=== PATIENT | female | born 1995 | race American Indian/Alaskan Native ===

== ENCOUNTER 2024-07-20 03:52 | Emergency (ER) | payer SELFPAY ==
[2024-07-20] MEDS: Ondansetron 4 MG/2 ML SDV IVPUSH ONE (04:05)
[2024-07-20] MEDS: Famotidine 20 MG/2 ML SDV IVPUSH ONE (04:05)
[2024-07-20] MEDS: Morphine 4 MG/ML Syringe IVPUSH ONE ×2 (04:06→04:40)
[2024-07-20] MEDS: Sodium Chloride 0.9% 10 ML Syringe FLUSH PRN (04:06)
[2024-07-20] MEDS: Sodium Chloride 0.9% 2.5 ML Syringe FLUSH PRN (04:06)
[2024-07-20 04:09] LABS: BASOPHILS ABSOLUTE AUTO 0.04 K/uL (0.00-0.20); BASOPHILS PERCENT AUTO 0.4 % (0.0-1.0); EOSINOPHILS ABSOLUTE AUTO 0.15 K/uL (0.00-0.45); EOSINOPHILS PERCENT AUTO 1.4 % (0.0-6.0); HEMATOCRIT 34.2 % (37.0-47.0); IMMATURE GRAN ABSOLUTE AUTO 0.03 K/uL (0.00-0.05); IMMATURE GRAN PERCENT AUTO 0.3 % (0.0-0.4); LYMPHOCYTES ABSOLUTE AUTO 4.65 K/uL (1.00-4.80); LYMPHOCYTES PERCENT AUTO 42.7 % (24.0-44.0); MEAN CORPUSCULAR HEMOGLOBIN 21.5 pg (28.0-32.0); MEAN CORPUSCULAR VOLUME 69.4 fL (83.0-99.0); MEAN PLATELET VOLUME 9.2 fL (9.4-12.3); MONOCYTES ABSOLUTE AUTO 0.76 K/uL (0.00-0.80); NEUTROPHILS ABSOLUTE AUTO 5.26 K/uL (1.80-7.70); NEUTROPHILS PERCENT AUTO 48.2 % (41.0-71.0); PLATELET COUNT,PLT 453 K/uL (150-400); WHITE BLOOD CELL COUNT,WBC 10.89 K/uL (3.9-11.3)
[2024-07-20 04:34] LABS: A/G RATIO 0.9 (0.9-1.6); ALBUMIN 3.4 g/dL (3.4-5.0); BILIRUBIN TOTAL 0.2 mg/dL (0.2-1.0); CALCIUM 9.2 mg/dL (8.5-10.1); CARBON DIOXIDE,CO2 24.5 mmol/L (21.0-32.0); CREATININE 0.9 mg/dL (0.6-1.0); EST CRCL DRUG DOSING (CG) 84.49 mL/min; POTASSIUM,K 3.3 mmol/L (3.5-5.1); PROTEIN TOTAL,TP 7.2 g/dL (6.4-8.2)
[2024-07-20 04:43] LABS: HEMOGLOBIN 10.6 g/dL (12.0-16.0); RED BLOOD CELL COUNT 4.93 M/uL (4.10-5.30)
[2024-07-20] MEDS: Iopamidol 755 MG/ML 500 ML Multipack Bottle IVPUSH ONE (05:03)
== END 2024-07-20 05:47 | disposition home or self-care (01) ==
LOC: MW.ED 03:52
DX: K80.50 Calculus of bile duct without cholangitis or cholecystitis without obstruction (principal)
CPT/HCPCS: 36415; 74177; 80053; 83690; 84703; 85025; 96374; 96375; 96376; 99284; J2270; J2405; J3490; Q9967

== ENCOUNTER 2025-10-24 14:20 | Emergency (ER) | payer SELFPAY ==
[2025-10-24] MEDS: Ketorolac 30 MG/ML SDV IVPUSH ONE (16:21)
[2025-10-24 16:35] LABS: BASOPHILS ABSOLUTE AUTO 0.01 K/uL (0.00-0.20); BASOPHILS PERCENT AUTO 0.1 % (0.0-1.0); EOSINOPHILS ABSOLUTE AUTO 0.05 K/uL (0.00-0.45); EOSINOPHILS PERCENT AUTO 0.7 % (0.0-6.0); IMMATURE GRAN ABSOLUTE AUTO 0.02 K/uL (0.00-0.05); IMMATURE GRAN PERCENT AUTO 0.3 % (0.0-0.4); LYMPHOCYTES ABSOLUTE AUTO 0.58 K/uL (1.00-4.80); LYMPHOCYTES PERCENT AUTO 8.5 % (24.0-44.0); MEAN PLATELET VOLUME 8.6 fL (9.4-12.3); MONOCYTES ABSOLUTE AUTO 0.37 K/uL (0.00-0.80); MONOCYTES PERCENT AUTO 5.4 % (0.0-8.0); NEUTROPHILS ABSOLUTE AUTO 5.80 K/uL (1.80-7.70); NEUTROPHILS PERCENT AUTO 85.0 % (41.0-71.0); NRBC ABSOLUTE 0.00 K/uL (0.00-0.02); NRBC PERCENT 0.0 /100WBC (0.0-0.2); PLATELET COUNT,PLT 340 K/uL (150-400); RED BLOOD CELL COUNT 4.83 M/uL (4.10-5.30); WHITE BLOOD CELL COUNT,WBC 6.83 K/uL (3.9-11.3)
[2025-10-24 17:11] LABS: A/G RATIO 0.9 (0.9-1.6); ALANINE AMINOTRANSFERASE,ALT 10 IU/L (14-63); ASPARTATE AMNIOTRANSFERASE,AST 13 IU/L (15-37); BILIRUBIN TOTAL 0.3 mg/dL (0.2-1.0); BLOOD UREA NITROGEN,BUN 8 mg/dL (7.0-18.0); CARBON DIOXIDE,CO2 28.6 mmol/L (21.0-32.0); CHLORIDE,CL 101 mmol/L (98-107); CREATININE 0.8 mg/dL (0.6-1.0); ESTIMATED GFR 103 mL/min (>60); GLUCOSE RANDOM 103 mg/dL (74-106); POTASSIUM,K 3.7 mmol/L (3.5-5.1); PROTEIN TOTAL,TP 7.8 g/dL (6.4-8.2); SODIUM,NA 137 mmol/L (136-145)
[2025-10-24 17:16] LABS: LACTIC ACID 2.2 mmol/L (0.4-2.0)
[2025-10-24] MEDS: Amoxicillin/Clavulanate K 875-125 MG Tab PO ONE (17:52)
[2025-10-24 18:15] LABS: APPEARANCE,URINE CLEAR; GLUCOSE,URINE NEGATIVE (NEGATIVE); OCCULT BLOOD,URINE NEGATIVE (NEGATIVE)
[2025-10-24 18:30] LABS: LACTIC ACID 1.5 mmol/L (0.4-2.0)
== END 2025-10-24 19:31 | disposition home or self-care (01) ==
LOC: MW.ED 14:20
DX: J06.9 Acute upper respiratory infection, unspecified (principal); E86.0 Dehydration; Z75.3 Unavailability and inaccessibility of health-care facilities; Z79.899 Other long term (current) drug therapy
CPT/HCPCS: 36415; 71045; 80053; 81003; 83605; 85025; 87040; 87428; 96361; 96374; 99284; A9270; J1885; J7030